=== PATIENT | male | born 1950 | race Caucasian/White ===

== ENCOUNTER 2018-09-27 09:14 | Outpatient (CLI) | payer OTHER ==
--- NOTE | 2018-09-27 15:30 | Ultrasound Report ---
Reason: ENCOUNTER FOR SCREENING FOR CARIOVASCULAR DISEASE Procedure Date: 09/27/2018 Accession Number: [id number] / [id number] Procedure: US - Aorta Screening CPT Code: FULL RESULT: EXAM: AORTIC DOPPLER ULTRASOUND EXAM DATE: 09/27/2018 10:00 AM. CLINICAL HISTORY: Abdominal aortic aneurysm screening COMPARISON: None. TECHNIQUE: Real-time sonographic imaging of retroperitoneal vascular structures, including color-flow, Doppler flow and spectral analysis was performed by the livestock handler. Multiple telecommunications sales representative static images were saved for review. FINDINGS: Aorta: The abdominal aorta was adequately imaged. No evidence for abdominal aortic aneurysm. Aortic measurements as follows: Proximal sagittal plane: 2.4 cm Mid transverse plane: 2 x 1.9 cm Distal transverse plane: 1.9 x 2 cm. Iliac Vessels: The proximal common iliac arteries are normal in caliber. Right transverse: 1 x 0.8 cm; left transverse: 1 x 0.9 cm. Other: None. IMPRESSION: Normal. No abdominal aortic aneurysm. RADIA
== END 2018-09-27 09:15 | disposition home or self-care (01) ==
LOC: DI 09:14
PROVIDERS: ATTEND Internal Medicine
DX: Z13.6 Encounter for screening for cardiovascular disorders (principal)
CPT/HCPCS: 76706

== ENCOUNTER 2019-06-24 07:45 | Outpatient (CLI) | payer OTHER ==
--- NOTE | 2019-06-24 08:58 | Ultrasound Report ---
Reason: LT INGUINAL MASS Procedure Date: 06/24/2019 Accession Number: [id number] / [id number] Procedure: US - Pelvic Limited or F/U CPT Code: Final Report FULL RESULT: EXAM: Limited PELVIC ultrasound EXAM DATE: 06/24/2019 08:37 AM. CLINICAL HISTORY: Left inguinal mass. COMPARISON: None. TECHNIQUE: Real-time scanning was performed of the left inguinal region with static images obtained. FINDINGS: Mass protruding 1.8 cm defect is seen in the region of the left inguinal canal, no bowel is identified. The finding is reported to be medial to the epigastric artery by the lacquer polisher. The patient is focally tender. The finding is reducible in real-time during ultrasound examination. IMPRESSION: Reducible [id number] inguinal hernia. RADIA
== END 2019-06-24 07:46 | disposition home or self-care (01) ==
LOC: DI 07:45
PROVIDERS: ATTEND Nurse Practitioner Family
DX: K40.90 Unilateral inguinal hernia, without obstruction or gangrene, not specified as recurrent (principal)
CPT/HCPCS: 76857

== ENCOUNTER 2019-07-29 10:25 | Day surgery (SDC) | payer OTHER ==
[~2019-07-29 10:25] MED LIST: BUPIVACAINE 0.5% PF 30 ML VIAL INFIL ONE; LIDOCAINE 1%-EPI 1:100000 20 ML MDV SUBQ ONE
--- NOTE | 2019-07-29 10:26 | ANESTHESIA ---
Pre-Anesthesia VS, & Labs <Polo Riggs - Last Filed: 07/29/19 10:24> - NPO >8 hours <Candy Montiel - Last Filed: 07/29/19 11:05> - Diagnosis L inguinal hernia (Polo Riggs) - Procedure L open inguinal hernia repair (Polo Riggs) Vital Signs: Temp Pulse Resp BP Pulse Ox 36.3 C L 73 14 112/83 H 97 07/29/19 10:30 07/29/19 10:30 07/29/19 10:30 07/29/19 10:30 07/29/19 10:30 Height 5 ft 8 in Weight (kg) 78 kg Home Medications and Allergies <Polo Riggs - Last Filed: 07/29/19 10:24> <Candy Montiel - Last Filed: 07/29/19 11:05> Active Medications Hydromorphone HCl (Dilaudid Inj Syringe) 0.5 mg IVP Q30M PRN PRN Reason: Breakthrough Pain Ondansetron HCl (Zofran Inj) 4 mg IVP Q6HR PRN PRN Reason: Nausea / Vomiting Oxycodone HCl (Roxicodone) 5 mg PO Q4HR PRN PRN Reason: PAIN Allergies/Adverse Reactions: Allergies Allergy/AdvReac Type Severity Reaction Status Date / Time codeine AdvReac Nausea Verified 07/25/19 10:59 Anes History & Medical History - Medical History Cardiovascular: reports: None Pulmonary: reports: None Gastrointestinal: reports: GERD, Colon polyps Urinary: reports: None Musculoskeletal: reports: Osteoarthritis, Chronic back pain Endocrine/Autoimmune: reports: None Skin: reports: Other - Surgical History General: Colonoscopy Orthopedic: Rotator cuff repair, Arthroscopic surgery <Polo Riggs - Last Filed: 07/29/19 10:24> - Anesthetic History Anesthesia Complications: reports: No previous complications - Medical History Gastrointestinal: reports: GERD (controlled with diet) Neuro: reports: None Blood Disorders: reports: None Smoking Status: Never smoker Psychosocial: reports: Alcohol (beer per week) <Candy Montiel - Last Filed: 07/29/19 11:05> Exam General: Alert, Oriented x3, Cooperative, No acute distress Dental: WNL Mouth Openin Fingerbreadth Neck Mobility: Normal Mallampati classification: II Thyromental Distance: 4-6 cm (2 FB) Respiratory: Lungs clear, Normal breath sounds, No respiratory distress, No accessory muscle use Cardiovascular: Regular rate, Normal S1, Normal S2, No murmurs Mental/Cognitive Status: Alert/Oriented X3, Normal for patient <Candy Montiel - Last Filed: 07/29/19 11:05> Plan Anesthesia Type: General Consent for Procedure(s) Verified and Reviewed: Yes Code Status: Attempt Resuscitation ASA classification: 2-Mild systemic disease Is this case an emergency?: No <Candy Montiel - Last Filed: 07/29/19 11:05>
[2019-07-29] MEDS ORDERED: ONDANSETRON 4 MG/2 ML VIAL IVP PRN (10:55)
[2019-07-29] MEDS ORDERED: HYDROmorphone 0.5 MG/0.5 ML SYRINGE IVP PRN (10:55)
[2019-07-29] MEDS ORDERED: oxyCODONE 5 MG TABLET PO PRN (10:55)
[2019-07-29] MEDS ORDERED: LACTATED RINGERS 1,000 ML IV ONE (10:56)
[2019-07-29] MEDS ORDERED: CEFAZOLIN SODIUM IN 0.9 % NACL 2 GM/100 ML BAG IV ONE (10:57)
[2019-07-29] MEDS ORDERED: LIDOCAINE 1%-EPI 1:100000 20 ML MDV SUBQ ONE (11:28)
[2019-07-29] MEDS ORDERED: BUPIVACAINE 0.5% PF 30 ML VIAL INFIL ONE (11:28)
[2019-07-29] MEDS ORDERED: ROPIVACAINE 0.5% PF 20 ML AMPULE ONE (12:24)
--- NOTE | 2019-07-29 13:07 | OPERATIVE REPORT ---
Operative Report - General Procedure Date: 07/29/19 Pre-Op Diagnosis: Left Inguinal Hernia Procedure Performed: Left inguinal hernia repair with mesh Post Op Diagnosis: same - Procedure Note Primary Surgeon: Crystal Hewitt MD Anesthesia Provider: Domingo Montiel CRNA Anesthesia Technique: General ET tube Pathology: 1. nerve 2. hernia sac 3. lipoma Estimated Blood Loss (mL): 5 Indications: 69yo M with symptomatic left inguinal hernia. All risks, benefits, and alternatives discussed and pt wishes to proceed. Findings: direct hernia; lipoma adherent to sac ilioinguinal nerve identified and resected Complications: none - Other Other Information/Narrative: Patient was taken to the operating room and placed on the operating table in supine position. The left groin was prepped and draped in the usual sterile fashion and a timeout performed with the team present. The pubic symphysis and anterior superior iliac spine were then marked. Local anesthesia was used to infiltrate the line of planned incision as well as the area of the ilioinguinal nerve. A 10 blade scalpel was used to make an 8 cm long incision along the length of the inguinal ligament. Electrocautery was used to go down to the level of the external oblique. A 15 blade scalpel used to make a small incision in the aponeurosis and then Metzenbaum scissors used to open up the external oblique aponeurosis widely. The ilioinguinal nerve was identified and carefully excised so it was entirely removed from the field. The posterior aspect of the external oblique aponeurosis was cleaned superiorly and inferiorly. The shelving edge of the inguinal ligament was identified. The spermatic cord and its surrounding tissues were identified and encircled with a chio drain. Attachments to cremaster were muscle were taken down using electrocautery and blunt dissection. A direct hernia was identified with a small lipoma adherent to the sac. This was dissected away from the spermatic cord contents. The hernia sac was then opened noting no abdominal contents within the sac. Using 2-0 silk suture the hernia sac was ligated in a high fashion. This was then transected and passed off the field. The lipoma was also identified and ligated near its base with 2-0 silk suture as well. The area was irrigated and dried. Using a Bard mesh cut to size the floor of the inguinal canal was recreated. The mesh was sewn into place with 0-Ethibond in an interrupted fashion starting at the pubic tubercle. The internal ring was then recreated by sewing the flaps of the keyhole mesh together. A finger was noted to easily pass through the ring along with the spermatic cord contents. The was irrigated again. Hemostasis was obtained using electrocautery. The mesh was noted to lie without tension in satisfactory position.The external oblique aponeurosis was then reapproximated using 3-0 vicryl in a running fashion. This also recreated the external ring. The left scrotum was palpated and the testicle and spermatic cord were pulled back into their usual anatomic position. Airam's fascia was reapproximated using 2-0 vicryl in a running fashion. The skin was reapproximated using 4-0 monocryl in a running subcuticular fashion. The remainder of the local anesthesia was used over the incision site and at the level of the ilioinguinal nerve. The area was cleaned and dried. Dermabond was placed over the incision. All counts were correct at the end of the procedure. The patient was awakened and taken to the PACU in stable condition.
[2019-07-29] MEDS ORDERED: ACETAMINOPHEN 1,000 MG/100 ML 100 ML IV ONE (13:22)
[2019-07-29 14:54] VITALS: BP 121/80
== END 2019-07-29 10:26 | disposition home or self-care (01) ==
LOC: SDS 10:25
PROVIDERS: ATTEND Surgery
PROC: 0YU60JZ Supplement Left Inguinal Region with Synthetic Substitute, Open Approach (ICD-10-PCS; principal; 2019-07-29 11:30)
DX: K40.90 Unilateral inguinal hernia, without obstruction or gangrene, not specified as recurrent (principal); D17.6 Benign lipomatous neoplasm of spermatic cord; Z87.891 Personal history of nicotine dependence
CPT/HCPCS: 49505; C1781; J0131; J0690; J7120

== ENCOUNTER 2020-11-20 10:31 | Emergency (ER) | payer OTHER ==
[2020-11-20] MEDS ORDERED: MECLIZINE 12.5 MG TABLET PO STA (11:03)
[2020-11-20] MEDS ORDERED: ONDANSETRON 4 MG/2 ML VIAL IVP STA (11:03)
--- NOTE | 2020-11-20 11:05 | ED Physician Documentation ---
History of Present Illness - Stated complaint Stated Complaint: N/V DIZZINESS - Chief complaint Chief Complaint: Neuro - History obtained from History obtained from: Patient - History of Present Illness Timing: Today Pain level max: 0 Pain level now: 0 - Additonal information Additional information: 70-year-old male presents to the emergency department feeling like the room is spinning today and feeling off balance. He states he felt nauseated during this as well. Worse with moving his head, better with remaining still. Similar symptoms several years ago that resolved on their own. No numbness or tingling. No head injury. No fever. No chills. No recent falls. Review of Systems Constitutional: denies: Fever, Chills Throat: denies: Sore throat Cardiac: denies: Chest pain / pressure, Palpitations Respiratory: denies: Dyspnea, Cough GI: denies: Vomiting, Diarrhea Skin: denies: Rash Musculoskeletal: denies: Neck pain, Back pain Neurologic: denies: Headache PD PAST MEDICAL HISTORY - Past Medical History Cardiovascular: None Respiratory: None Neuro: None Endocrine/Autoimmune: None GI: GERD : None HEENT: Chronic vision loss Psych: None Musculoskeletal: Osteoarthritis, Chronic back pain Derm: Other - Past Surgical History General: Colonoscopy Ortho: Rotator cuff repair, Arthroscopic surgery - Present Medications Home Medications: Ambulatory Orders Medication Instructions Recorded Confirmed Meclizine HCl [Motion Sickness] 25 mg PO Q6H PRN #30 tablet 11/20/20 Ondansetron Odt [Zofran] 4 mg TL Q6H PRN #10 tablet 11/20/20 - Allergies Allergies/Adverse Reactions: Allergies Allergy/AdvReac Type Severity Reaction Status Date / Time codeine AdvReac Nausea Verified 11/20/20 10:49 - Social History Does the pt smoke?: No Smoking Status: Former smoker Does the pt have substance abuse?: Yes Substance Use and Type: Other PD ED PE NORMAL - Vitals Vital signs reviewed: Yes - General General: Alert and oriented X 3, No acute distress, Well developed/nourished - HEENT HEENT: PERRL, Moist mucous membranes - Neck Neck: Supple, no meningeal sign - Cardiac Cardiac: RRR, No murmur - Respiratory Respiratory: No respiratory distress, Clear bilaterally - Abdomen Abdomen: Soft, Non tender, Non distended - Derm Derm: Warm and dry - Extremities Extremities: No edema, No calf tenderness / cord - Neuro Neuro: Alert and oriented X 3, cloud engagement partner 2-12 intact, No motor deficit, No sensory deficit, Normal speech, Other (Positive Hallpike to the left. Normal cerebellar tests) Eye Opening: Spontaneous Motor: Obeys Commands Verbal: Oriented GCS Score: 15 - Psych Psych: Normal mood, Normal affect Results - Vitals Vitals: Vital Signs - 24 hr 11/20/20 11/20/20 11/20/20 10:38 11:14 12:01 Temperature 36.9 C 36.6 C Heart Rate 65 68 70 Respiratory 16 14 15 Rate Blood Pressure 125/79 124/75 124/80 O2 Saturation 99 100 99 Oxygen O2 Source Room air - EKG (time done) 1056 Rate: Rate (enter#) (62) Rhythm: NSR Robson: Normal Intervals: Normal MD QRS: Normal Ischemia: Normal ST segments Other comments: Other comments (Early R wave transition) - Labs Labs: Laboratory Tests 11/20/20 11/20/20 11/20/20 10:53 10:53 10:53 WBC 8.3 RBC 4.54 L Hgb 14.2 Hct 41.4 L MCV 91.2 MCH 31.3 H MCHC 34.3 RDW 12.1 Plt Count 246 MPV 9.5 Neut # (Auto) 5.4 Lymph # (Auto) 2.0 [place] # (Auto) 0.7 Eos # (Auto) 0.1 Baso # (Auto) 0.1 Absolute Nucleated RBC 0.00 Nucleated RBC % 0.0 Sodium 137 Potassium 3.6 Chloride 103 Carbon Dioxide 24 Anion Gap 10.0 BUN 16 Creatinine 0.8 Estimated GFR (MDRD) 95 Glucose 123 H Calcium 9.0 Total Bilirubin 1.0 AST 24 ALT 19 Alkaline Phosphatase 51 Troponin I High Sens 3.6 Total Protein 7.3 Albumin 4.6 Globulin 2.7 Albumin/Globulin Ratio 1.7 Lipase 38 - Rads (name of study) cxr Radiology: Prelim report reviewed, EMP read contemporaneously, See rad report (no acute abnormality) PD MEDICAL DECISION MAKING - ED course Complexity details: reviewed results, re-evaluated patient, considered differential, d/w patient ED course: Patient with what appears to be BPPV. Symptoms resolved with meclizine and Zofran. Tolerating p.o. without difficulty. No significant lab abnormalities. No EKG abnormalities. No evidence of cerebellar infarct. Ambulating with a steady gait. Patient counseled regarding signs and symptoms for which I believe and urgent re-evaluation would be necessary. Patient with good understanding of and agreement to plan and is comfortable going home at this time This document was made in part using voice recognition software. While efforts are made to proofread this document, sound alike and grammatical errors may occur. Departure - Departure Disposition: Home, Self Care Clinical Impression: BPPV (benign paroxysmal positional vertigo) Qualifiers: Laterality: left Qualified Code(s): H81.12 - Benign paroxysmal vertigo, left ear Condition: Good Instructions: ED BPV Vertigo Follow-Up: Cas Blackburn MD [Primary Care Provider] - Within 1 week Prescriptions: Meclizine HCl [Motion Sickness] 25 mg PO Q6H PRN #30 tablet PRN Reason: Dizziness Ondansetron Odt [Zofran] 4 mg TL Q6H PRN #10 tablet PRN Reason: Nausea / Vomiting Comments: You appear to have benign paroxysmal positional vertigo today. You can try the half somersault maneuver at home when you are starting to feel better. You can find instructions for this on YouTube. Your left ear appears to be the one af fected today. Use the medications as prescribed. Return if you worsen. Discharge Date/Time: 11/20/20 12:03
[2020-11-20 11:10] LABS: BASOPHILS # (AUTO) 0.1 10^3/uL (0.0-0.1); BASOPHILS % (AUTO) 0.7 %; EOSINOPHILS # (AUTO) 0.1 10^3/uL (0.0-0.7); EOSINOPHILS % (AUTO) 1.2 %; HCT - HEMATOCRIT 41.4 % (42.0-52.0); HGB - HEMOGLOBIN 14.2 g/dL (14.0-18.0); LYMPHOCYTES % (AUTO) 24.1 %; MEAN CORPUSCULAR HEMOGLOBIN 31.3 pg (27.0-31.0); MEAN CORPUSCULAR HGB CONC 34.3 g/dL (32.0-36.0); MEAN CORPUSCULAR VOLUME 91.2 fL (80.0-94.0); MEAN PLATELET VOLUME 9.5 fL (7.4-11.4); MONOCYTES # (AUTO) 0.7 10^3/uL (0.0-1.0); MONOCYTES % (AUTO) 8.4 %; NEUTROPHILS # (AUTO) 5.4 10^3/uL (1.5-6.6); NEUTROPHILS % (AUTO) 65.4 %; PLT - PLATELET COUNT 246 10^3/uL (130-450); RED BLOOD COUNT 4.54 10^6/uL (4.70-6.10); RED CELL DISTRIBUTION WIDTH 12.1 % (12.0-15.0); WHITE BLOOD COUNT 8.3 x10^3/uL (4.8-10.8)
[2020-11-20 11:41] LABS: ALBUMIN 4.6 g/dL (3.2-5.5); ALBUMIN/GLOBULIN RATIO 1.7 (1.0-2.2); CREATININE 0.8 mg/dL (0.6-1.2); POTASSIUM 3.6 mmol/L (3.5-5.0); TOTAL PROTEIN 7.3 g/dL (6.7-8.2)
--- NOTE | 2020-11-20 11:41 | XRAY Report ---
PROCEDURE: Chest 1 View X-Ray INDICATIONS: Chest Pain TECHNIQUE: One view of the chest was acquired. COMPARISON: None FINDINGS: Surgical changes and devices: None. Lungs and pleura: No pleural effusions or pneumothorax. Minimal linear atelectasis versus scarring, right lung base. Mediastinum: Mediastinal contours appear normal. Heart size is normal. Bones and chest wall: No suspicious bony lesions. Overlying soft tissues appear unremarkable. IMPRESSION: Minimal linear atelectasis versus scarring, right lung base. Reviewed by: Jonatan Choi MD on 11/20/2020 10:40 AM KAY Approved by: Jonatan Choi MD on 11/20/2020 10:40 AM KAY Station ID: [id number]
[2020-11-20 12:02] VITALS: BP 124/80
== END 2020-11-20 12:03 | disposition home or self-care (01) ==
LOC: ED 10:31
DX: H81.12 Benign paroxysmal vertigo, left ear (principal); Z87.891 Personal history of nicotine dependence
CPT/HCPCS: 36415; 71045; 80053; 83690; 84484; 85025; 93005; 96374; 99284; A9270

== ENCOUNTER 2020-12-16 13:29 | Outpatient (CLI) | payer OTHER ==
--- NOTE | 2020-12-16 15:40 | Ultrasound Report ---
PROCEDURE: Carotid Doppler Complete INDICATIONS: CAROTID BRUIT TECHNIQUE: Color and pulse Doppler interrogation was performed of both carotid systems, with image documentation and velocity measurements. COMPARISON: None. FINDINGS: Right side: Brachial blood pressure: 114/68 mm Hg. Common carotid artery peak systolic velocity: 87 cm/sec. Internal carotid artery peak systolic velocity: 70 cm/sec. Internal carotid artery end diastolic velocity: 28 cm/sec. External carotid artery peak systolic velocity: 113 cm/sec. ICA/CCA peak systolic ratio: 0.8 . Taylor scale imaging description: No plaque Percent internal carotid artery stenosis: Fully patent . Vertebral artery: Flow direction is antegrade. Left side: Brachial blood pressure: 124/73 mm Hg. Common carotid artery peak systolic velocity: 76 cm/sec. Internal carotid artery peak systolic velocity: 106 cm/sec. Internal carotid artery end diastolic velocity: 42 cm/sec. External carotid artery peak systolic velocity: 76 cm/sec. ICA/CCA peak systolic ratio: 1.39 . Taylor scale imaging description: No plaque Percent internal carotid artery stenosis: Fully patent . Vertebral artery: Flow direction is antegrade. IMPRESSION: Origins of the right and left internal carotid arteries are fully patent. The estimate of stenosis included in the report of the imaging study was calculated using the NASCET method Reviewed by: Lary Blake MD, PhD on 12/16/2020 3:39 PM PDT Approved by: Lary Blake MD, PhD on 12/16/2020 3:39 PM PDT Station ID: [id number]
== END 2020-12-16 13:30 | disposition home or self-care (01) ==
LOC: DI 13:29
PROVIDERS: ATTEND Nurse Practitioner Family
DX: R09.89 Other specified symptoms and signs involving the circulatory and respiratory systems (principal)
CPT/HCPCS: 93880

== ENCOUNTER 2023-09-11 10:45 | Outpatient (CLI) | payer OTHER ==
--- NOTE | 2023-09-11 22:22 | XRAY Report ---
PROCEDURE: Chest 2V INDICATIONS: COUGH TECHNIQUE: 2 views of the chest were obtained. COMPARISON: None. FINDINGS: Surgical changes and devices: None. Lungs and pleura: No pleural effusions or pneumothorax. Lungs are clear. Stable right basilar scarr ing Mediastinum: Mediastinal contours appear normal. Heart size is normal. Bones and chest wall: No suspicious bony lesions. Overlying soft tissues appear unremarkable. IMPRESSION: No acute cardio pulmonic findings Reviewed by: Darian Romero MD on 09/11/2023 9:21 PM AKDT Approved by: Darian Romero MD on 09/11/2023 9:21 PM AKDT Station ID: [id number]
== END 2023-09-11 10:46 | disposition home or self-care (01) ==
LOC: DI 10:45
PROVIDERS: ATTEND Physician Assistant
DX: R05.9 Cough, unspecified (principal)